=== PATIENT | female | born 1960 ===

== ENCOUNTER 2018-07-31 10:52 | Inpatient (IN) | payer MEDICAID, OTHER ==
[2018-07-31 10:52] VITALS: BMI 31.8
[2018-07-31] MEDS ORDERED: Albuterol 0.083% Inhal Sol (2.5 mg/3 mL) UD INH STA ×2 (11:20→11:54)
[2018-07-31] MEDS ORDERED: Albuterol 0.083% Inhal Sol (2.5 mg/3 mL) UD ONE ×3 (11:22→11:55)
[2018-07-31] MEDS ORDERED: Albuterol-Ipratrop 3 mg / 0.5 (3 ml) UD ONE (11:55)
[2018-07-31] MEDS ORDERED: Albuterol-Ipratrop 3 mg / 0.5 (3 ml) UD IH STA (12:19)
--- NOTE | 2018-07-31 13:11 | C.PDOC ---
History Of Present Illness 57 y/o female presents to ED stating that she hasnt been feeling well for the past 2 weeks. Patient states that she started having allergies and was feeling congested. Reports she then started coughing and lost her voice, and started being short of breath. Patient has no known history of asthma and COPD. Time Seen by Provider: 07/31/18 11:36 Chief Complaint (Nursing): Cough, Cold, Congestion History Per: Patient History/Exam Limitations: no limitations Onset/Duration Of Symptoms: Days Current Symptoms Are (Timing): Still Present Past Medical History Reviewed: Historical Data, Nursing Documentation, Vital Signs Vital Signs: Last Vital Signs Temp 97.8 F 07/31/18 11:17 Pulse 67 07/31/18 11:17 Resp 21 07/31/18 11:17 BP 164/89 H 07/31/18 11:17 Pulse Ox 93 L 07/31/18 11:17 Primary Care Provider: FAMILY PROVIDER,NO - Medical History PMH: Asthma, Bronchitis, Depression, HTN Denies: Diabetes, Hepatitis, HIV, Seizures, Sexually Transmitted Disease Family History: States: No Known Family Hx - Social History Hx Tobacco Use: Yes Hx Alcohol Use: Yes Hx Substance Use: No - Immunization History Hx Tetanus Toxoid Vaccination: Yes Hx Influenza Vaccination: Yes Hx Pneumococcal Vaccination: No Review Of Systems Except As Marked, All Systems Reviewed And Found Negative. Constitutional: Negative for: Fever ENT: Positive for: Nose Congestion Cardiovascular: Negative for: Chest Pain Respiratory: Positive for: Cough, Shortness of Breath Gastrointestinal: Negative for: Nausea, Vomiting Skin: Negative for: Rash Physical Exam - Physical Exam Appears: Non-toxic, No Acute Distress, Other (SOB, audible wheezing) Skin: Warm, Dry Head: Atraumatic, Normacephalic Eye(s): bilateral: Normal Inspection Ear(s): Bilateral: Normal Oral Mucosa: Moist Throat: No Erythema Neck: Normal ROM, Supple Chest: No Tenderness Cardiovascular: Rhythm Regular, No Murmur Respiratory: No Rales, No Rhonchi, Wheezing Gastrointestinal/Abdominal: Soft, No Tenderness Back: No Vertebral Tenderness Extremity: Bilateral: Atraumatic, Normal Color And Temperature, Normal ROM Neurological/Psych: Oriented x3, Normal Speech, Normal Cognition ED Course And Treatment - Laboratory Results Result Diagrams: 07/31/18 13:10 07/31/18 13:10 O2 Sat by Pulse Oximetry: 93 (RA) Pulse Ox Interpretation: Abnormal - Other Rad CXR X-Ray: Read By Radiologist Interpretation: FINDINGS: LUNGS: Minimal opacities noted at the lung bases likely atelectasis. PLEURA: No significant pleural effusion identified. No pneumothorax apparent. CARDIOVASCULAR: No aortic atherosclerotic calcification present. Normal cardiac size. No pulmonary vascular congestion. OSSEOUS STRUCTURES: No significant abnormalities. VISUALIZED UPPER ABDOMEN: Normal. OTHER FINDINGS: None. IMPRESSION: Small opacities at the lung bases likely atelectasis. Progress Note: Labs ordered and reviewed. Chest XR ordered. Patient was given ne bulizer treatment and solumedrol. On re-evaluation she feels slightly better, but still has wheezing and fells SOB. Case was d/w who accepted patient to [facility] for observation for continuation of Neb. treatment. Disposition - Disposition Disposition: HOSPITALIZED Disposition Time: 13:48 Condition: FAIR - Clinical Impression Clinical Impression: COPD exacerbation - PA / LITERATURE TEACHER / Resident Statement MD/DO has reviewed & agrees with the documentation as recorded. - Scribe Statement The provider has reviewed the documentation as recorded by the Scribe Adriana Lai All medical record entries made by the Scribe were at my direction and personally dictated by me. I have reviewed the chart and agree that the record accurately reflects my personal performance of the history, physical exam, medical decision making, and the department course for this patient. I have also personally directed, reviewed, and agree with the discharge instructions and disposition. Decision To Admit - Pt Status Changed To: Hospital Disposition Of: Observation - . Bed Request Type: Telemetry Admitting Physician: Mikey Neumann Patient Diagnosis: COPD exacerbation
[2018-07-31 13:23] LABS: BASO # 0.1 K/uL (0.0-0.2); BASO % 0.8 % (0.0-2.0); EOS # 0.5 K/uL (0.0-0.7); EOS % 6.9 % (0.0-4.0); HEMOGLOBIN 12.8 g/dL (11.0-16.0); LYMPH # 2.2 K/uL (1.0-4.3); LYMPH % 33.9 % (20.0-40.0); MEAN CELL VOLUME 93.8 fL (81.0-99.0); MEAN CORPUSCULAR HEMOGLOBIN 31.9 pg (27.0-31.0); MONO # 0.6 K/uL (0.0-0.8); MONO % 9.3 % (0.0-10.0); NEUT # 3.2 K/uL (1.8-7.0); NEUT % 49.1 % (50.0-75.0); NRBC % 0.1 % (0.0-2.0); RED CELL DISTRIBUTION WIDTH 13.7 % (11.5-14.5); WHITE BLOOD COUNT 6.6 K/uL (4.8-10.8)
[2018-07-31 13:40] LABS: ALB/GLOB RATIO 1.2 (1.0-2.1); ALBUMIN 4.1 g/dL (3.5-5.0); ALT/SGPT 26 U/L (9-52); AST/SGOT 24 U/L (14-36); BLOOD UREA NITROGEN 14 mg/dL (7-17); CALCIUM 9.3 mg/dl (8.6-10.4); GFR NON-AFRICAN AMERICAN > 60
--- NOTE | 2018-07-31 15:22 | RAD ---
Date of service: 07/31/2018 HISTORY: cough/wheezing COMPARISON: No prior. TECHNIQUE: Chest PA and lateral views FINDINGS: LUNGS: Minimal opacities noted at the lung bases likely atelectasis. PLEURA: No significant pleural effusion identified. No pneumothorax apparent. CARDIOVASCULAR: No aortic atherosclerotic calcification present. Normal cardiac size. No pulmonary vascular congestion. OSSEOUS STRUCTURES: No significant abnormalities. VISUALIZED UPPER ABDOMEN: Normal. OTHER FINDINGS: None. IMPRESSION: Small opacities at the lung bases likely atelectasis.
--- NOTE | 2018-07-31 15:26 | CP.PCM.HP ---
Past Patient History - Infectious Disease Hx of Infectious Diseases: None - Past Social History Smoking Status: Current Some Days Smoker - CARDIAC Hx Hypertension: Yes - PULMONARY Hx Asthma: Yes Hx Bronchitis: Yes - NEUROLOGICAL Hx Seizures: No - HEENT Hx Sinusitis: Yes - HEMATOLOGICAL/ONCOLOGICAL Hx Human Immunodeficiency Virus (HIV): No - GENITOURINARY/GYNECOLOGICAL Hx Sexually Transmitted Disorders: No - PSYCHIATRIC Hx Depression: Yes Hx Substance Use: No - SURGICAL HISTORY Hx Surgeries: Yes Hx Open Reduction Internal Fixation: Yes (left ankle) - ANESTHESIA Hx Anesthesia: Yes Hx Anesthesia Reactions: No Hx Malignant Hyperthermia: No Meds Allergies/Adverse Reactions: Allergies Allergy/AdvReac Type Severity Reaction Status Date / Time No Known Allergies Allergy Verified 07/31/18 11:19 Physical Exam - Constitutional Appears: Well - Head Exam Head Exam: ATRAUMATIC, NORMAL INSPECTION, NORMOCEPHALIC - Eye Exam Eye Exam: EOMI, Normal appearance, PERRL Pupil Exam: NORMAL ACCOMODATION, PERRL - ENT Exam ENT Exam: Mucous Membranes Moist, Normal Exam - Neck Exam Neck exam: Positive for: Normal Inspection - Respiratory Exam Respiratory Exam: Decreased Breath Sounds - Cardiovascular Exam Cardiovascular Exam: REGULAR RHYTHM, +S1, +S2 - GI/Abdominal Exam GI & Abdominal Exam: Diminished Bowel Sounds, Soft - Rectal Exam Rectal Exam: Deferred - Neurological Exam Neurological exam: Oriented x3 Results - Vital Signs Recent Vital Signs: Last Vital Signs Temp 97.8 F 07/31/18 11:17 Pulse 72 07/31/18 13:53 Resp 20 07/31/18 13:53 BP 128/70 07/31/18 13:53 Pulse Ox 96 07/31/18 13:53 - Labs Result Diagrams: 07/31/18 13:10 07/31/18 13:10 Labs: Laboratory Results - last 24 hr 07/31/18 07/31/18 13:10 13:10 WBC 6.6 RBC 4.00 Hgb 12.8 Hct 37.5 MCV 93.8 MCH 31.9 H MCHC 34.0 RDW 13.7 Plt Count 261 MPV 9.0 Neut % (Auto) 49.1 L Lymph % (Auto) 33.9 [place] % (Auto) 9.3 Eos % (Auto) 6.9 H Baso % (Auto) 0.8 Neut # (Auto) 3.2 Lymph # (Auto) 2.2 [place] # (Auto) 0.6 Eos # (Auto) 0.5 Baso # (Auto) 0.1 Sodium 143 Potassium 3.7 Chloride 106 Carbon Dioxide 27 Anion Gap 15 BUN 14 Creatinine 0.6 L Est GFR ( Amer) > 60 Est GFR (Non-Af Amer) > 60 Random Glucose 129 H D Calcium 9.3 Total Bilirubin 0.5 AST 24 ALT 26 Alkaline Phosphatase 80 Total Protein 7.4 Albumin 4.1 Globulin 3.3 Albumin/Globulin Ratio 1.2
[2018-07-31] MEDS ORDERED: Naproxen 275 mg Tab PO PRN ×3 (16:49→17:15)
[2018-07-31] MEDS: Azithromycin 500 MG in Sodium Chloride 0.9% 250 ML IVPB SCH (17:51)
[2018-07-31] MEDS: MethylPREDNISolone 40 mg Vial IVP SCH (21:27)
[2018-08-01] MEDS: Albuterol-Ipratrop 3 mg / 0.5 (3 ml) UD INH SCH ×4 (01:16→20:58)
[2018-08-01] MEDS: MethylPREDNISolone 40 mg Vial IVP SCH ×3 (05:29→22:17)
[2018-08-01] MEDS: Pantoprazole 20 mg EC Tab PO SCH (09:03)
[2018-08-01] MEDS: Enoxaparin 40 mg Syringe SC SCH (09:03)
[2018-08-01 12:59] LABS: SQUAMOUS EPITHIAL 1 /hpf (0-5); URINE BACTERIA RARE (<OCC); URINE BILIRUBIN NEGATIVE (NEGATIVE); URINE BLOOD NEGATIVE (NEGATIVE); URINE CLARITY Clear (Clear); URINE COLOR Straw (YELLOW); URINE GLUCOSE (UA) NORMAL (Normal); URINE LEUKOCYTE ESTERASE NEG Leu/uL (Negative); URINE PROTEIN NEGATIVE (NEGATIVE); URINE UROBILINOGEN NORMAL mg/dL (0.2-1.0)
[2018-08-01 14:11] LABS: CK-MB 1.07 ng/mL (0.0-3.38)
--- NOTE | 2018-08-01 16:23 | CP.PCM.PN ---
Subjective - Date & Time of Evaluation Date of Evaluation: 08/01/18 - Subjective Subjective: patient examined today no nausea no vomitng no fever no diarrhea no dizziness no shortness of breath Objective - Vital Signs/Intake and Output Vital Signs (last 24 hours): Temp Pulse Resp BP Pulse Ox 98.4 F 77 18 125/70 100 08/01/18 07:00 08/01/18 07:00 08/01/18 07:00 08/01/18 09:04 08/01/18 07:00 - Medications Medications: Current Medications Albuterol/Ipratropium (Duoneb 3 Mg/0.5 Mg (3 Ml) Ud) 3 ml INH RQ6 [facility] Last Admin: 08/01/18 13:35 Dose: 3 ml Aspirin (Aspirin) 325 mg PO DAILY [facility] Last Admin: 08/01/18 13:53 Dose: 325 mg Diphenhydramine HCl (Benadryl) 25 mg PO HS PRN PRN Reason: Allergy symptoms Last Admin: 08/01/18 01:01 Dose: 25 mg Enalapril Maleate (Vasotec) 5 mg PO DAILY [facility] Last Admin: 08/01/18 09:04 Dose: 5 mg Enoxaparin Sodium (Lovenox) 40 mg SC DAILY [facility] Last Admin: 08/01/18 09:03 Dose: 40 mg Ceftriaxone Sodium 1 gm/ (Sodium Chloride) 100 mls @ 100 mls/hr IVPB DAILY [facility]; Protocol Last Admin: 08/01/18 09:30 Dose: 100 mls/hr Azithromycin 500 mg/ Sodium (Chloride) 250 mls @ 250 mls/hr IVPB DAILY@1700 [facility]; Protocol Last Admin: 07/31/18 17:51 Dose: 250 mls/hr Methylprednisolone (Solu-Medrol) 40 mg IVP Q8 [facility] Last Admin: 08/01/18 13:53 Dose: 40 mg Montelukast Sodium (Singulair) 10 mg PO HS [facility] Last Admin: 07/31/18 21:27 Dose: 10 mg Naproxen (Anaprox) 275 mg PO BID PRN PRN Reason: Pain Pantoprazole Sodium (Protonix Ec Tab) 20 mg PO DAILY [facility] Last Admin: 08/01/18 09:03 Dose: 20 mg - Labs Labs: 07/31/18 13:10 05/04/19 13:10 - Constitutional Appears: Well - Head Exam Head Exam: ATRAUMATIC, NORMAL INSPECTION, NORMOCEPHALIC - Eye Exam Eye Exam: EOMI, Normal appearance, PERRL Pupil Exam: NORMAL ACCOMODATION, PERRL - ENT Exam ENT Exam: Mucous Membranes Moist, Normal Exam - Neck Exam Neck Exam: Full ROM, Normal Inspection. absent: Lymphadenopathy - Respiratory Exam Respiratory Exam: Decreased Breath Sounds - Cardiovascular Exam Cardiovascular Exam: REGULAR RHYTHM, +S1, +S2 - GI/Abdominal Exam GI & Abdominal Exam: Soft, Diminished Bowel Sounds - Rectal Exam Rectal Exam: Deferred - Neurological Exam Neurological Exam: Oriented x3 Assessment and Plan - Assessment and Plan (Free Text) Plan: plan discussed with patient and family moderate complexity of care medications reviewed anaprox aspirin azithromycin benadryl ceftriaxone sodium duoneb lovenox protonix ec tab singulair solu-medrol vasotec vitals reviewed labs reviewed
[2018-08-01] MEDS: Azithromycin 500 MG in Sodium Chloride 0.9% 250 ML IVPB SCH (17:30)
[2018-08-01 21:09] LABS: CK-MB 1.38 ng/mL (0.0-3.38)
[2018-08-02] MEDS: Albuterol-Ipratrop 3 mg / 0.5 (3 ml) UD INH SCH ×5 (01:17→19:15)
[2018-08-02] MEDS: MethylPREDNISolone 40 mg Vial IVP SCH ×3 (05:46→22:03)
[2018-08-02] MEDS: Pantoprazole 20 mg EC Tab PO SCH (09:27)
[2018-08-02] MEDS: Enoxaparin 40 mg Syringe SC SCH (09:28)
[2018-08-02] MEDS: Azithromycin 500 MG in Sodium Chloride 0.9% 250 ML IVPB SCH (16:30)
--- NOTE | 2018-08-02 19:33 | CP.PCM.PN ---
Subjective - Date & Time of Evaluation Date of Evaluation: 08/02/18 - Subjective Subjective: patient seen today no fever no dizziness no diarrhea no vomiting no shortness of breath no nausea Objective - Vital Signs/Intake and Output Vital Signs (last 24 hours): Temp Pulse Resp BP Pulse Ox 98.9 F 71 22 130/73 99 08/02/18 15:00 08/02/18 16:00 08/02/18 16:49 08/02/18 15:00 08/02/18 16:49 - Medications Medications: Current Medications Albuterol/Ipratropium (Duoneb 3 Mg/0.5 Mg (3 Ml) Ud) 3 ml INH RQ6 [facility] Last Admin: 08/02/18 19:15 Dose: 3 ml Aspirin (Aspirin) 325 mg PO DAILY [facility] Last Admin: 08/02/18 09:27 Dose: 325 mg Diphenhydramine HCl (Benadryl) 25 mg PO HS PRN PRN Reason: Allergy symptoms Last Admin: 08/01/18 01:01 Dose: 25 mg Enalapril Maleate (Vasotec) 5 mg PO DAILY [facility] Last Admin: 08/02/18 09:27 Dose: 5 mg Enoxaparin Sodium (Lovenox) 40 mg SC DAILY [facility] Last Admin: 08/02/18 09:28 Dose: Not Given Azithromycin 500 mg/ Sodium (Chloride) 250 mls @ 250 mls/hr IVPB DAILY@1700 [facility]; Protocol Last Admin: 08/02/18 16:30 Dose: 250 mls/hr Methylprednisolone (Solu-Medrol) 40 mg IVP Q8 [facility] Last Admin: 08/02/18 13:35 Dose: 40 mg Montelukast Sodium (Singulair) 10 mg PO HS [facility] Last Admin: 08/01/18 22:17 Dose: 10 mg Naproxen (Anaprox) 275 mg PO BID PRN PRN Reason: Pain Pantoprazole Sodium (Protonix Ec Tab) 20 mg PO DAILY [facility] Last Admin: 08/02/18 09:27 Dose: 20 mg - Labs Labs: 07/31/18 13:10 07/31/18 13:10 - Constitutional Appears: Well - Head Exam Head Exam: ATRAUMATIC, NORMAL INSPECTION, NORMOCEPHALIC - Eye Exam Eye Exam: EOMI, Normal appearance, PERRL Pupil Exam: NORMAL ACCOMODATION, PERRL - ENT Exam ENT Exam: Mucous Membranes Moist, Normal Exam - Neck Exam Neck Exam: Full ROM, Normal Inspection. absent: Lymphadenopathy - Respiratory Exam Respiratory Exam: Decreased Breath Sounds - Cardiovascular Exam Cardiovascular Exam: REGULAR RHYTHM, +S1, +S2 - GI/Abdominal Exam GI & Abdominal Exam: Soft, Diminished Bowel Sounds - Rectal Exam Rectal Exam: Deferred - Neurological Exam Neurological Exam: Oriented x3 Assessment and Plan - Assessment and Plan (Free Text) Plan: anaprox aspirin azithromycin benadryl ceftriaxone sodium duoneb lovenox protonix ec tab singulair solu-medrol vasotec vitals reviewed labs reviewed plan discussed with patient and family moderate complexity of care medications reviewed
--- NOTE | 2018-08-02 20:48 | CARD ---
APPROVED REPORT Date of service: 08/02/2018 EXAM: Two-dimensional and M-mode echocardiogram with Doppler and color Doppler. Other Information Quality : GoodRhythm : INDICATION Abnormal EKG/Arrhythmia Dyspnea RISK FACTORS Hypertension 2D DIMENSIONS IVSd0.9 (0.7-1.1cm)LVDd4.7 (3.9-5.9cm) PWd0.8 (0.7-1.1cm)LA Zmvqoo10 (18-58mL) LVDs2.9 (2.5-4.0cm)FS (%) 38.9 % LVEF (%)69.3 (>50%)LVEF (Epstein's)74.39 % M-Mode DIMENSIONS Left Atrium (MM)3.75 (2.5-4.0cm)IVSd0.83 (0.7-1.1cm) Aortic Root3.25 (2.2-3.7cm)LVDd5.15 (4.0-5.6cm) Aortic Cusp Exc.2.29 (1.5-2.0cm)PWd0.69 (0.7-1.1cm) FS (%) 42 %LVDs3.00 (2.0-3.8cm) LVEF (%)72 (>50%) Mitral Valve MV E Swwkvrcc391.9cm/sMV A Ytamnvza97.1cm/sE/A ratio1.8 TDI Lateral E' Peak V13.19cm/sMedial E' Peak V10.55cm/sE/Lateral E'9.2 E/Medial E'11.6 Tricuspid Valve TR Peak Abiafccp700gn/sTR Peak [id number] LEFT VENTRICLE The left ventricle is normal size. There is normal left ventricular wall thickness. The left ventricular function is normal. The left ventricular ejection fraction is within the normal range. 74% No regional wall motion abnormalities noted. The left ventricular diastolic function is normal. No left ventricle thrombus noted on this study. There is no ventricular septal defect visualized. There is no left ventricular aneurysm. There is no mass noted in the left ventricle. RIGHT VENTRICLE The right ventricle is normal size. There is normal right ventricular wall thickness. The right ventricular systolic function is normal. ATRIA The left atrium size is normal. The right atrium size is normal. The interatrial septum is intact with no evidence for an atrial septal defect. AORTIC VALVE The aortic valve is normal in structure and function. No aortic regurgitation is present. There is no aortic valvular stenosis. There is no aortic valvular vegetation. MITRAL VALVE The mitral valve is normal in structure and function. There is no evidence of mitral valve prolapse. There is no mitral valve stenosis. There is trace mitral valve regurgitation noted. TRICUSPID VALVE The tricuspid valve is normal in structure and function. There is no tricuspid valve regurgitation noted. There is no tricuspid valve prolapse or vegetation. There is no tricuspid valve stenosis. PULMONIC VALVE The pulmonary valve is normal in structure and function. There is no pulmonic valvular regurgitation. There is no pulmonic valvular stenosis. GREAT VESSELS The aortic root is normal in size. The ascending aorta is normal in size. The pulmonary artery is normal. The IVC is normal in size and collapses >50% with inspiration. PERICARDIAL EFFUSION The pericardium appears normal. There is no pleural effusion. <Conclusion> Normal Study
--- NOTE | 2018-08-02 21:54 | CARD ---
APPROVED REPORT Date of service: 08/01/2018 EKG Measurement Heart [id number] <Conclusion> Normal sinus rhythm Prolonged QT Abnormal ECG
[2018-08-03 01:42] VITALS: RESP 20
[2018-08-03] MEDS: Albuterol-Ipratrop 3 mg / 0.5 (3 ml) UD INH SCH ×4 (02:54→20:57)
[2018-08-03] MEDS: MethylPREDNISolone 40 mg Vial IVP SCH ×3 (05:19→21:56)
[2018-08-03] MEDS: Enoxaparin 40 mg Syringe SC SCH (09:27)
[2018-08-03] MEDS: Pantoprazole 20 mg EC Tab PO SCH (09:27)
--- NOTE | 2018-08-03 11:07 | CP.PCM.CON ---
History of Present Illness - History of Present Illness History of Present Illness: 57 y/o female presents to ED stating that she hasnt been feeling well for the past 2 weeks. Patient states that she started having allergies and was feeling congested. Reports she then started coughing and lost her voice, and started being short of breath. Patient has no known history of asthma and COPD. Cardiac Hx: denies PMHX: asthma/bronchitis/allergies: chronic labile; HTN chronic stable, Depression chronic stable SOCHX: + TOB, occasional ETOH, no drugs Review of Systems - Review of Systems All systems: reviewed and no additional remarkable complaints except Past Patient History - Infectious Disease Hx of Infectious Diseases: None - Past Medical History & Family History Past Medical History?: Yes - Past Social History Smoking Status: Current Some Days Smoker - CARDIAC Hx Hypertension: Yes - PULMONARY Hx Respiratory Disorders: Yes Hx Asthma: Yes Hx Bronchitis: Yes - NEUROLOGICAL Hx Neurological Disorder: No Hx Seizures: No - HEENT Hx HEENT Problems: Yes Hx Sinusitis: Yes - RENAL Hx Chronic Kidney Disease: No - ENDOCRINE/METABOLIC Hx Endocrine Disorders: No - HEMATOLOGICAL/ONCOLOGICAL Hx Blood Disorders: No Hx Human Immunodeficiency Virus (HIV): No - INTEGUMENTARY Hx Dermatological Problems: No - MUSCULOSKELETAL/RHEUMATOLOGICAL Hx Musculoskeletal Disorders: No Hx Falls: No - GASTROINTESTINAL Hx Gastrointestinal Disorders: No - GENITOURINARY/GYNECOLOGICAL Hx Genitourinary Disorders: No Hx Sexually Transmitted Disorders: No - PSYCHIATRIC Hx Psychophysiologic Disorder: Yes Hx Depression: Yes Hx Substance Use: No - SURGICAL HISTORY Hx Surgeries: Yes Hx Open Reduction Internal Fixation: Yes (left ankle) - ANESTHESIA Hx Anesthesia: Yes Hx Anesthesia Reactions: No Hx Malignant Hyperthermia: No Meds Allergies/Adverse Reactions: Allergies Allergy/AdvReac Type Severity Reaction Status Date / Time No Known Allergies Allergy Verified 07/31/18 11:19 - Medications Medications: Current Medications Albuterol/Ipratropium (Duoneb 3 Mg/0.5 Mg (3 Ml) Ud) 3 ml INH RQ6 [facility] Last Admin: 08/03/18 02:54 Dose: 3 ml Aspirin (Aspirin) 325 mg PO DAILY [facility] Last Admin: 08/03/18 09:27 Dose: 325 mg Diphenhydramine HCl (Benadryl) 25 mg PO HS PRN PRN Reason: Allergy symptoms Last Admin: 08/01/18 01:01 Dose: 25 mg Enalapril Maleate (Vasotec) 5 mg PO DAILY [facility] Last Admin: 08/03/18 09:28 Dose: 5 mg Enoxaparin Sodium (Lovenox) 40 mg SC DAILY [facility] Last Admin: 08/03/18 09:27 Dose: Not Given Azithromycin 500 mg/ Sodium (Chloride) 250 mls @ 250 mls/hr IVPB DAILY@1700 [facility]; Protocol Last Admin: 08/02/18 16:30 Dose: 250 mls/hr Methylprednisolone (Solu-Medrol) 40 mg IVP Q8 [facility] Last Admin: 08/03/18 05:19 Dose: 40 mg Montelukast Sodium (Singulair) 10 mg PO HS [facility] Last Admin: 08/02/18 22:01 Dose: 10 mg Naproxen (Anaprox) 275 mg PO BID PRN PRN Reason: Pain Last Admin: 08/03/18 09:27 Dose: 275 mg Pantoprazole Sodium (Protonix Ec Tab) 20 mg PO DAILY [facility] Last Admin: 08/03/18 09:27 Dose: 20 mg Physical Exam - Constitutional Appears: No Acute Distress - Head Exam Head Exam: ATRAUMATIC, NORMAL INSPECTION, NORMOCEPHALIC - Eye Exam Eye Exam: EOMI, Normal appearance, PERRL - ENT Exam ENT Exam: Mucous Membranes Moist, Normal Oropharynx - Neck Exam Neck exam: Positive for: Full Rom. Negative for: Tenderness - Respiratory Exam Respiratory Exam: NORMAL BREATHING PATTERN. absent: Clear to Auscultation Bilateral (coarse BS's, mild diffuse wheeze, distant breath sounds, no crackles), Rales, Respiratory Distress, Stridor - Cardiovascular Exam Cardiovascular Exam: REGULAR RHYTHM, +S1, +S2. absent: Systolic Murmur - GI/Abdominal Exam GI & Abdominal Exam: Normal Bowel Sounds, Soft. absent: Tenderness - Extremities Exam Extremities exam: Positive for: normal inspection. Negative for: calf tenderness - Back Exam Back exam: NORMAL INSPECTION - Neurological Exam Neurological exam: Alert, CN II-XII Intact, Normal Gait, Oriented x3 - Psychiatric Exam Psychiatric exam: Normal Affect, Normal Mood - Skin Skin Exam: Normal Color, Warm Results - Vital Signs Recent Vital Signs: Last Vital Signs Temp 98.1 F 08/03/18 07:00 Pulse 75 08/03/18 07:21 Resp 20 08/03/18 07:00 BP 162/76 H 08/03/18 09:28 Pulse Ox 96 08/03/18 07:00 - Labs Result Diagrams: 07/31/18 13:10 07/31/18 13:10 - EKG Data EKG Interpreted by: Myself Rate: Normal - Imaging and Cardiology Chest x-ray Status: Image reviewed by me Assessment & Plan - Assessment and Plan (Free Text) Assessment: EKG: Normal CXR: basilar opacities, atalectasis: no effuison or congestion Labs: [place] ruled out Impression: SOB and tachycardia: c/w URI/bronchitis: improving with Rx Echo ordered and reviewed by me: Normal LVEF, normal wall motion, mild MR, normal PASP and RV contractility Plan: 1. Continue Rx and supportive care 2. HTN is controlled and stable on enalapril: if lingering cough consider change to ARB 3. smoking cessation advised No additional w/u planned: will sign off: d/c planning when primary sx's improve.
[2018-08-03] MEDS ORDERED: Azithromycin 500 MG in Sodium Chloride 0.9% 250 ML IVPB SCH (17:00)
--- NOTE | 2018-08-03 19:14 | CP.PCM.PN ---
Subjective - Date & Time of Evaluation Date of Evaluation: 08/03/18 - Subjective Subjective: patient examined today no fever no diarrhea no dizziness no nausea no vomiting no shortness of breath Objective - Vital Signs/Intake and Output Vital Signs (last 24 hours): Temp Pulse Resp BP Pulse Ox 98.1 F 82 20 145/71 93 L 08/03/18 15:00 08/03/18 15:20 08/03/18 15:00 08/03/18 15:00 08/03/18 15:00 - Medications Medications: Current Medications Acetaminophen (Tylenol 325mg Tab) 650 mg PO Q6 PRN PRN Reason: Pain, moderate (4-7) Last Admin: 08/03/18 17:51 Dose: 650 mg Albuterol/Ipratropium (Duoneb 3 Mg/0.5 Mg (3 Ml) Ud) 3 ml INH RQ6 [facility] Last Admin: 08/03/18 13:20 Dose: 3 ml Aspirin (Aspirin) 325 mg PO DAILY [facility] Last Admin: 08/03/18 09:27 Dose: 325 mg Diphenhydramine HCl (Benadryl) 25 mg PO HS PRN PRN Reason: Allergy symptoms Last Admin: 08/01/18 01:01 Dose: 25 mg Enalapril Maleate (Vasotec) 5 mg PO DAILY [facility] Last Admin: 08/03/18 09:28 Dose: 5 mg Enoxaparin Sodium (Lovenox) 40 mg SC DAILY [facility] Last Admin: 08/03/18 09:27 Dose: Not Given Azithromycin 500 mg/ Sodium (Chloride) 250 mls @ 250 mls/hr IVPB Q24H [facility]; Protocol Last Admin: 08/03/18 17:46 Dose: 250 mls/hr Methylprednisolone (Solu-Medrol) 40 mg IVP Q8 [facility] Last Admin: 08/03/18 14:28 Dose: 40 mg Montelukast Sodium (Singulair) 10 mg PO HS [facility] Last Admin: 08/02/18 22:01 Dose: 10 mg Naproxen (Anaprox) 275 mg PO BID PRN PRN Reason: Pain Last Admin: 08/03/18 09:27 Dose: 275 mg Pantoprazole Sodium (Protonix Ec Tab) 20 mg PO DAILY [facility] Last Admin: 08/03/18 09:27 Dose: 20 mg - Labs Labs: 07/31/18 13:10 05/04/19 13:10 - Constitutional Appears: Well - Head Exam Head Exam: ATRAUMATIC, NORMAL INSPECTION, NORMOCEPHALIC - Eye Exam Eye Exam: EOMI, Normal appearance, PERRL Pupil Exam: NORMAL ACCOMODATION, PERRL - ENT Exam ENT Exam: Mucous Membranes Moist, Normal Exam - Neck Exam Neck Exam: Full ROM, Normal Inspection. absent: Lymphadenopathy - Respiratory Exam Respiratory Exam: Decreased Breath Sounds - Cardiovascular Exam Cardiovascular Exam: REGULAR RHYTHM, +S1, +S2 - GI/Abdominal Exam GI & Abdominal Exam: Soft, Diminished Bowel Sounds - Rectal Exam Rectal Exam: Deferred - Neurological Exam Neurological Exam: Oriented x3 Assessment and Plan - Assessment and Plan (Free Text) Plan: plan discussed with patient moderate complexity of care labs reviewed vitals reviewed medications reviewed anaprox aspirin azithromycin benadryl duoneb lovenox protonix ec tab singulair solu-medrol tylenol vasotec
[2018-08-04] MEDS: Albuterol-Ipratrop 3 mg / 0.5 (3 ml) UD INH SCH ×3 (02:27→13:25)
[2018-08-04] MEDS: MethylPREDNISolone 40 mg Vial IVP SCH ×2 (07:00→13:51)
--- NOTE | 2018-08-04 07:29 | CP.PCM.PN ---
Subjective - Date & Time of Evaluation Date of Evaluation: 08/04/18 Time of Evaluation: 07:27 - Subjective Subjective: Progress note for Dr. Paz Neumann Patient was seen and examined at bedside in no acute distress. Patient reports feeling better and denies shortness of breath, cough, wheezing, or difficulty breathing. She also denies chest pain, palpitations, abdominal pain, nausea, vomiting, fevers, leg pain and swelling. No acute events overnight. Objective - Vital Signs/Intake and Output Vital Signs (last 24 hours): Temp Pulse Resp BP Pulse Ox 98.2 F 81 20 145/83 92 L 08/04/18 04:24 08/04/18 04:24 08/04/18 04:24 08/04/18 04:24 08/04/18 04:24 - Medications Medications: Current Medications Acetaminophen (Tylenol 325mg Tab) 650 mg PO Q6 PRN PRN Reason: Pain, moderate (4-7) Last Admin: 08/03/18 17:51 Dose: 650 mg Albuterol/Ipratropium (Duoneb 3 Mg/0.5 Mg (3 Ml) Ud) 3 ml INH RQ6 [facility]AN Last Admin: 08/04/18 02:27 Dose: 3 ml Aspirin (Aspirin) 325 mg PO DAILY [facility] Last Admin: 08/03/18 09:27 Dose: 325 mg Diphenhydramine HCl (Benadryl) 25 mg PO HS PRN PRN Reason: Allergy symptoms Last Admin: 08/01/18 01:01 Dose: 25 mg Enalapril Maleate (Vasotec) 5 mg PO DAILY [facility] Last Admin: 08/03/18 09:28 Dose: 5 mg Enoxaparin Sodium (Lovenox) 40 mg SC DAILY [facility] Last Admin: 08/03/18 09:27 Dose: Not Given Azithromycin 500 mg/ Sodium (Chloride) 250 mls @ 250 mls/hr IVPB Q24H [facility]; Protocol Last Admin: 08/03/18 17:46 Dose: 250 mls/hr Methylprednisolone (Solu-Medrol) 40 mg IVP Q8 [facility]PHAN Last Admin: 08/04/18 07:00 Dose: 40 mg Montelukast Sodium (Singulair) 10 mg PO HS [facility] Last Admin: 08/03/18 21:56 Dose: 10 mg Naproxen (Anaprox) 275 mg PO BID PRN PRN Reason: Pain Last Admin: 08/03/18 09:27 Dose: 275 mg Pantoprazole Sodium (Protonix Ec Tab) 20 mg PO DAILY [facility] Last Admin: 08/03/18 09:27 Dose: 20 mg - Labs Labs: 07/31/18 13:10 07/31/18 13:10 - Constitutional Appears: No Acute Distress - Head Exam Head Exam: ATRAUMATIC, NORMAL INSPECTION - Eye Exam Eye Exam: EOMI, Normal appearance - ENT Exam ENT Exam: Mucous Membranes Moist - Respiratory Exam Respiratory Exam: Clear to Ausculation Bilateral, NORMAL BREATHING PATTERN. absent: Rales, Rhonchi, Wheezes, Respiratory Distress - Cardiovascular Exam Cardiovascular Exam: REGULAR RHYTHM, +S1, +S2 - GI/Abdominal Exam GI & Abdominal Exam: Soft, Normal Bowel Sounds. absent: Distended, Firm, Guarding, Tenderness - Extremities Exam Extremities Exam: Normal Inspection. absent: Pedal Edema, Tenderness - Neurological Exam Neurological Exam: Alert, Awake, Oriented x3 - Psychiatric Exam Psychiatric exam: Normal Affect, Normal Mood - Skin Skin Exam: Dry, Intact, Normal Color, Warm Assessment and Plan - Assessment and Plan (Free Text) Plan: 57 year old female with a history of asthma and hypertension who presented with shortness of breath, allergies, and congestion. Allergic Asthma - Hx of seasonal allergies; patient states her asthma is exacerbated during the warmer months due to her allergies. - Previously used inhaler at home as needed, but hasnt had an inhaler for months. She states she has an asthma exacerbation 1-2 times per year. - Continue the following medications: * Duonebs Q6h * Azithromycin 500mg IV Q24h * Benadryl 25mg PO prn * Solumedrol 40mg IV Q8h * Singulaire 10mg PO HS Hypertension - Continue home medication (gets medication from [facility]): Enalapril 5mg PO daily Patient stable for discharge to home per Dr. Neumann. Patient must continue the following medications: - Enalapril 5mg PO-1 tablet daily - Singulair 10mg PO-1 tablet in the evening - Ventolin 2 puff inhalation every 6 hours as needed - May take over the counter antihistamines as needed for seasonal allergies (for example-Benadryl, Claritin, Marcy) Patient must follow up in the [facility] within one week of discharge. If symptoms worsen or reoccur, patient should return to the nearest ER. Case discussed with Dr. Paz Schumacher, PGY2
[2018-08-04 07:48] VITALS: PULSE 70; TEMP 98.4; O2SAT 95
[2018-08-04 11:09] VITALS: BP 144/72
[2018-08-04] MEDS: Pantoprazole 20 mg EC Tab PO SCH (11:09)
[2018-08-04] MEDS: Enoxaparin 40 mg Syringe SC SCH (11:09)
--- NOTE | 2018-08-05 12:19 | VASCLAB ---
Date of service: 08/04/2018 PROCEDURE: Right Upper Extremity Venous Duplex Exam HISTORY: Leg pain PRIORS: None. TECHNIQUE: Right upper extremity, internal jugular, subclavian, axillary, brachial, ulnar, radial, basilic and upper cephalic veins were evaluated. Flow was assessed with color Doppler, compressibility, assessment of phasic flow and augmentation response. Report prepared by CHANTAL Guevara FINDINGS: RIGHT: 1. Internal Jugular: 1.1. Compressibility - Fully compressible: Thrombus - None : Flow - Phasic: Augmentation -Normal: Reflux - None. 2. Subclavian: 2.1. Compressibility - Fully compressible: Thrombus - None : Flow - Phasic: Augmentation -Normal: Reflux - None. 3. Axillary: 3.1. Compressibility - Fully compressible: Thrombus - None : Flow - Phasic: Augmentation -Normal: Reflux - None. 4. Brachial: 4.1. Compressibility - Fully compressible: Thrombus - None: Flow - Phasic: Augmentation -Normal: Reflux - None. 5. Ulnar: 5.1. Compressibility - Fully compressible: Thrombus - None: Flow - Phasic: Augmentation -Normal: Reflux - None. 6. Radial: 6.1. Compressibility - Fully compressible: Thrombus - None: Flow - Phasic: Augmentation - Normal: Reflux - None. 7. Cephalic: 7.1. Compressibility - Fully compressible: Thrombus - None: Flow - Phasic: Augmentation -Normal: Reflux - None. 8. Basilic: 8.1. Compressibility - Fully compressible: Thrombus - None: Flow - Phasic: Augmentation -Normal: Reflux - None. OTHER FINDINGS: Normal venous flow noted in the left internal jugular and LEFT subclavian veins. IMPRESSION: Right: No evidence of vein thrombosis of the right upper extremity with excellent venous flow. Normal valve function noted of the right side.
== END 2018-08-04 17:06 | disposition home or self-care (01) | DRG 140 ==
LOC: C.ER 10:52 → C.6T 13:47 → OBSVTOIN 08-02 16:45
PROVIDERS: ADMIT Internal Medicine Nephrology; ATTEND Internal Medicine Nephrology
DX: J44.1 Chronic obstructive pulmonary disease with (acute) exacerbation (principal); I10 Essential (primary) hypertension; F17.210 Nicotine dependence, cigarettes, uncomplicated; F32.9 Major depressive disorder, single episode, unspecified